=== PATIENT | female | born 2000 | race Caucasian/White ===

== ENCOUNTER 2023-09-10 19:50 | Emergency (ER) | payer BC, SELFPAY ==
[2023-09-10 19:51] VITALS: BP 130/78
[2023-09-10 19:59] VITALS: BMI 20.9
--- NOTE | 2023-09-10 20:01 | ED.GENMED ---
History of Present Illness
General
Chief Complaint: Abdominal Pain
Time Seen by Provider: 09/10/23 19:58
Travel History
Have you had any contact with someone who has COVID-19?: No
Do you have any symptoms of coronavirus? Fever > 100 degrees, chills, cough, shortness of breath, sore throat, loss of taste or smell, muscle aches, or headache?: No
History of Present Illness
History of Present Illness:
HPI: Patient presents with abdominal pain primarily in the right lower quadrant. She is compliant with Stelara for Crohn's disease. She has not had pain like this in the past. She had loss of appetite today. The pain has been ongoing for the
past 24 hours or so. She had some vomiting yesterday. There is no significant nausea currently. She had some diarrhea earlier as well.
EXAM:
GENERAL: Well appearing in no distress
HEENT: Moist oral mucosa
CARDIOVASCULAR: No murmurs, normal heart rate and rhythm, No chest wall tenderness
PULMONARY: No respiratory distress, breath sounds are clear and equal
ABDOMEN: Soft with no peritoneal signs, mild right lower quadrant tenderness
NEUROLOGIC: Excellent strength all extremities, no coordination deficits
PSYCHIATRIC: Appropriate mental status, normal insight and judgement
EXTREMITIES: Nontender, no edema, moves all extremities equally
SKIN: No rash, no lesions
ED COURSE:
8 PM: I initially evaluated patient
NUMBER AND COMPLEXITY OF PROBLEMS ADDRESSED AT THE ENCOUNTER
� Chronic conditions affecting care: Crohn's
� Acute Exacerbation and/or Progression of Chronic Illness: This is an acute problem
� Differential Diagnosis includes: Exacerbation of Crohn's disease, terminal ileitis, appendicitis, ovarian cyst/ovarian torsion, UTI
AMOUNT AND/OR COMPLEXITY OF DATA TO BE REVIEWED AND ANALYZED
� I performed an independent evaluation of and my interpretation is:
EKG:
CT: I personally reviewed CT imaging suggesting ileitis
X-rays:
Laboratory Studies: White count normal at 5.6, CRP normal at 6.3, chemistries unremarkable, hCG negative, 3+ blood noted on urinalysis with trace leukocyte esterase, of note greater than 30 squamous epithelial cells and less
than 2 white cells
Other: Ultrasound imaging personally reviewed and shows no acute abnormality. I agree with radiologist interpretation
� Review of other/old records: I reviewed endoscopy note from 2019�the patient was evaluated for eosinophilic esophagitis and had biopsy at that time and there was some suggestion of gastroparesis
� Clinical information was obtained by an independent historian: I spoke to friend at bedside
� Prescriptions/Medications Considered but not given:
� Further testing considered but not performed:
RISK OF COMPLICATIONS AND/OR MORBIDITY OR MORTALITY OF PATIENT MANAGEMENT
� Social determinants of health affecting care: Lives at home
� Discussion with other providers: None needed
� Escalation of care including admission/observation vs risk of discharge considered: Patient does have a history of Crohn's. However white count and CRP are both normal. She does have some mild tenderness on examination. CT
imaging was obtained after ultrasound showed no clear acute abnormality. Toradol has been ordered for pain. She does have a GI doctor at [place] that she can follow-up with.
Past History
Past History
ED Past Medical History: Psychiatric
ED Past Surgical History: None
Social History
Tobacco: Non-smoker
Alcohol: Occasional
Personal: Single
Living: with family
Phy Exam
Physical Exam
Physical Exam:
See HPI
Course
Orders/Labs/Results
Orders:
Orders
09/10/23 20:02
0.9% Sodium Chloride 1000 ml [Nss] 1,000 ml IV BOLUS
09/10/23 20:06
0.9% Sodium Chloride 1000 ml [Nss] 1,000 ml IV BOLUS
Iohexol [Omnipaque] See Protocol PO NOW STA
Test Result ONCE
US Pelvis [US Pelvis Only (non-obstetric)] Urgent
Comment:
Reason For Exam: RLQ pain eval for cyst/torsion
09/10/23 20:07
CT Abd/pel W Iv And Oral Contr Urgent
Comment:
Reason For Exam: RLQ pain, anorexia, Crohn's
09/10/23 20:08
0.9% Sodium Chloride 1000 ml [Nss] 1,000 ml IV BOLUS
09/10/23 20:13
CRP [C-Reactive Protein] Urgent
Complete Blood Count/With Diff Urgent
Comprehensive Metabolic Panel Urgent
HCG, Serum Qualitative Screen Urgent
Lipase Urgent
Urinalysis Reflex To Culture Urgent
Date Specimen was Collected: 09/10/23
Time Specimen was Collected: 20:02
Urine Microscopic Reflex Cult Urgent
09/10/23 23:14
Ketorolac [Toradol] 15 mg IV NOW STA
Abnormal Lab Results
09/10/23
20:13
MPV 11.3 H fL
(7.4-10.4)
Glucose 109 H mg/dl
(70-99)
Ur Occult Blood Reflex 3+ A
(Negative)
Leukocyte Esterase Rfl Trace A
(Negative)
Urine Bacteria (Reflex) Few A
(Negative)
09/10/23 20:13
09/10/23 20:13
Vital Signs
Initial and Last Documented VS:
Initial Vital Signs
Temp Pulse Resp BP Pulse Ox
97.4 F 58 18 130/78 100
09/10/23 19:51 09/10/23 19:51 09/10/23 19:51 09/10/23 19:51 09/10/23 19:51
Last Documented Vital Signs
Temp Pulse Resp BP Pulse Ox
97.4 F 48 16 112/64 99
09/10/23 19:51 09/10/23 23:33 09/10/23 23:33 09/10/23 23:33 09/10/23 23:33
*Critical Care Note
Total Time (30-74mins, 75-104mins- exclusive of procedures): Not Applicable
ED Attending Note
-
Portions of this chart may have been created with voice recognition software.� Occasional wrong word or��sound alike� substitutions may have occurred due to the inherent limitations of voice recognition software.
Discharge Plan
Departure
Patient Disposition: Home (Routine Discharge)
Date of Disposition: 09/10/23
Time of Disposition: 23:17
Patient with high blood pressure during this ER visit?: Yes
Discharge Problem:
Ileitis
Instructions: Constipation, Adult (DC), Crohn's Disease (DC)
Prescriptions:
No Action
Control
1 tab PO DAILY
Linzess 145 mcg Capsule
145 mcg PO DAILY
Stelara 90 mg/mL Syringe
90 mg SC Q8W
Referrals:
Kelsey Cosme PA [Family Provider] -
Activity Restrictions/Additional Instructions:
Pelvic ultrasound was normal. Your white count and C-reactive protein are both normal. Other basic labs normal. CAT scan:
'Mild to moderate wall thickening and increased enhancement of loops of the distal ileum within the pelvis, and findings would suggest ileitis. There is a small amount of free fluid within the adjacent pelvis. Given the clinical history, this is
most likely on the basis of Crohn's disease. Infectious ileitis would be the main differential consideration. The appendix is visualized and appears normal. Moderate to large amount of stool within the right colon and the transverse colon, and
suggests a degree of constipation.'
I also recommend that you try MiraLAX to help with constipation. We gave a dose of Toradol tonight. Follow-up with your GI doctors at [place].
Interventions
Interventions:
*Risk Screen - Suicide Last Done: 09/10/23 19:51
*General Assessment Last Done: 09/10/23 20:00
*Neglect/Abuse Screening Last Done: 09/10/23 19:51
ED- Fall Risk Assessment Last Done: 09/10/23 23:33
*ED COVID-19 Vaccine History Last Done: 09/10/23 20:01
*Nursing Disposition Last Done: 09/10/23 23:33
PT-Bczvra-Ncjylekswo Assessment Last Done: 09/10/23 20:00
Discharge Date and Time
Discharge Date/Time: 09/10/23 23:33
[2023-09-10 20:20] LABS: % Basophils 0.5 % (0-2); % Eosinophils 2.9 % (0-6); % Immature Granulocytes 0.2 % (0-0.5); % Monocytes 6.6 % (1.7-9.3); % Neutrophils 63.8 % (42.2-75.2); Absolute Eosinophils 0.2 10^3/uL (0-0.7); Absolute Lymphocytes 1.5 10^3/uL (1.2-3.4); Absolute Monocytes 0.4 10^3/uL (0.1-0.6); Absolute Neutrophils 3.6 10^3/uL (1.4-6.5); Hematocrit 41.6 % (37.0-47.0); Hemoglobin 14.9 g/dL (12.0-16.0); Mean Corp Hgb Conc. 35.8 g/dL (33.0-37.0); Mean Corpuscular Hgb 30.3 pg (27.0-31.0); Mean Corpuscular Volume 84.7 fL (81.0-99.0); Mean Platelet Volume 11.3 fL (7.4-10.4); Nucleated Red Blood Cells % 0 %; Platelet Count 186 10^3/uL (130-400); Red Blood Cell Count 4.91 10^6/uL (4.20-5.40); Red Cell Dist. Width 12.8 % (11.5-14.5); White Blood Cell Count 5.6 10^3/uL (4.8-10.8)
[2023-09-10 20:21] LABS: Urine Albumin Negative (Neg - Trace); Urine Bilirubin Negative (Negative); Urine Character Clear (Clear); Urine Color Yellow; Urine Glucose Negative (Negative); Urine Ketone Negative (Negative); Urine Leukocyte Trace (Negative); Urine Nitrite Negative (Negative); Urine Occult Blood 3+ (Negative); Urine Urobilinogen Negative (Neg - 1+)
[2023-09-10] MEDS: OMNIPAQUE 50 ML PO (20:21)
[2023-09-10] MEDS: NSS 1000 IV ×2 (20:21→20:24)
[2023-09-10 20:29] LABS: Urine Red Blood Cell 0-2 /HPF (0-2); Urine Squamous Cell >30 /LPF (Few)
[2023-09-10 20:30] LABS: Urine Bacteria Few (Negative); Urine White Cell 0-2 /HPF (0-5)
[2023-09-10 20:35] LABS: HCG, Serum Qualitative Screen Negative
[2023-09-10 20:39] LABS: ALT (SGPT) 23 U/L (0-35); AST (SGOT) 31 U/L (14-36); Albumin 4.3 g/dl (3.5-5.0); Alkaline Phosphatase 64 U/L (38-126); Blood Urea Nitrogen 9 mg/dl (7-17); Calcium 8.8 mg/dl (8.4-10.2); Carbon Dioxide 23 mmol/L (22-30); Chloride 106 mmol/L (98-107); Estimated Creatinine Clearance 112 ml/min; Glucose 109 mg/dl (70-99); Lipase 215 U/L (23-300); Potassium 3.6 mmol/L (3.5-5.1); Sodium 135 mmol/L (135-145); Total Bilirubin 0.5 mg/dl (0.2-1.3); Total Protein 6.9 g/dl (6.3-8.2); eGFR > 60.00
[2023-09-10 21:34] VITALS: BP 111/72
[2023-09-10] MEDS: TORADOL 15 MG IV (23:23)
[2023-09-10 23:33] VITALS: BP 112/64
== END 2023-09-10 23:33 | disposition home or self-care (01) ==
LOC: EMR 19:50
PROVIDERS: EMERGENCY PHYSICIAN Emergency Medicine; FAMILY PHYSICIAN Family Medicine
DX: A09 Infectious gastroenteritis and colitis, unspecified (principal); K50.90 Crohn's disease, unspecified, without complications
CPT/HCPCS: 99284; 96374; 96361; 74177; 76856; 80053; 81003; 81015; 83690; 84703; 85025; 86140; Q9967

== ENCOUNTER → 2023-10-16 11:30 | Outpatient (REF) | payer BC, SELFPAY | LOC: MRI 3T 11:30 | PROVIDERS: ATTENDING PHYSICIAN Internal Medicine Gastroenterology | DX: K50.00 Crohn's disease of small intestine without complications (principal) | CPT/HCPCS: 72197; 74183; A9575 ==